=== PATIENT | male | born 1970 | race Caucasian/White ===

== ENCOUNTER 2017-05-09 01:09 | Emergency (ER) | payer OTHER ==
[~2017-05-09] VITALS: Ht 170.2 cm; Wt 88.7 kg
[~2017-05-09 01:09] MED LIST: ABILIFY2 MG PO; ASMANEX TW200 MICROG IH; BENTYL20 MG PO; CLINDAMYCIN HCL75 MG PO; FLEXERIL10 MG PO; GLUCOPHAGE500 MG PO; HUMULIN R100 UNITS/ SC; HUMULIN R500 UNITS/ SC; JANUVIA25 MG PO; LEXAPRO10 MG PO; LOPRESSOR50 MG PO; LYRICA PO; LYRICA150 MG; LYRICA75 MG PO; METFORMIN HCL500 MG PO; METOPROLOL PO; NEURONTIN300 MG PO; NORTRIPTYLINE H10 MG PO; NOVOLOG PE100 UNITS/ SC; OMNICEF300 M1; PROTONIX40 MG PO; PROVENTIL17 GM IH; REQUIP0.25 MG PO; SINGULAIR10 MG PO; TYLENOL REGULA325 MG PO; ULTRAM50 MG PO; XOPENEX HF200 INHALA IH; ZOLOFT100 MG PO
[2017-05-09 01:31] LABS: POINT-OF-CARE METER ID UU13113778
[2017-05-09 02:11] LABS: HEMATOCRIT 45.1 % (38.0-50.0); MCH 29.5 PG (29.0-34.0); MCHC 36.1 G/DL (30.0-36.0); MCV 81.7 FL (86-99); MEAN PLAT.VOLUME 10.2 uM^3 (9.0-12.4); PLATELET COUNT 226 K/uL (156-360); RBC DIS.WIDTH-CV 11.9 % (11.8-14.6); RBC DIS.WIDTH-SD 34.9 % (39-53); RED BLOOD COUNT 5.52 M/uL (4.00-5.50); WHITE BLOOD COUNT 7.5 K/uL (4.1-10.2)
[2017-05-09 02:22] LABS: CHLORIDE 103 mEq/L (99-109); POTASSIUM 3.9 mEq/L (3.7-5.4); SODIUM 137 mEq/L (136-147)
[2017-05-09 02:24] LABS: GLUCOSE 330 mg/dL (70-99)
[2017-05-09 02:25] LABS: ANION GAP 10 MEQ/L (2-14)
[2017-05-09 02:28] LABS: GFR ESTIMATE (CALCULATED) > 59 mL/min/; UREA NITROGEN (BUN) 18 mg/dL (9-23)
[2017-05-09 03:21] VITALS: BP 138/88
== END 2017-05-09 03:22 | disposition home or self-care (01) ==
LOC: EME 01:09
PROVIDERS: Emergency Medicine
DX: G62.9 Polyneuropathy, unspecified (principal); E11.65 Type 2 diabetes mellitus with hyperglycemia; Z79.4 Long term (current) use of insulin; R06.02 Shortness of breath; I10 Essential (primary) hypertension
CPT/HCPCS: 80048; 82948; 85027

== ENCOUNTER 2018-01-29 22:07 | Emergency (ER) | payer OTHER ==
[~2018-01-29] VITALS: Ht 170.2 cm; Wt 88.1 kg
[2018-01-29 22:51] LABS: HEMATOCRIT 43.1 % (38.0-50.0); HEMOGLOBIN 16.1 G/DL (12.5-16.6); MCH 30.4 PG (29.0-34.0); MCHC 37.4 G/DL (30.0-36.0); MCV 81.3 FL (86-99); PLATELET COUNT 229 K/uL (156-360); RBC DIS.WIDTH-CV 12.3 % (11.8-14.6); RBC DIS.WIDTH-SD 36.3 % (39-53); WHITE BLOOD COUNT 7.7 K/uL (4.1-10.2)
[2018-01-29 22:59] LABS: CHLORIDE 102 mEq/L (99-109); POTASSIUM 3.7 mEq/L (3.7-5.4); SODIUM 135 mEq/L (136-147)
[2018-01-29 23:00] LABS: GLUCOSE 353 mg/dL (70-99)
[2018-01-29 23:04] LABS: GFR ESTIMATE (CALCULATED) > 59 mL/min/ (58.99-99999)
[2018-01-29 23:05] LABS: UREA NITROGEN (BUN) 13 mg/dL (9-23)
[2018-01-29 23:12] LABS: TROP-I INTERPRETATION NEGATIVE; TROPONIN-I < 0.01 ng/mL (0.0-0.30)
[2018-01-30 01:47] LABS: TROP-I INTERPRETATION NEGATIVE; TROPONIN-I < 0.01 ng/mL (0.0-0.30)
[2018-01-30 02:19] VITALS: BP 124/75
== END 2018-01-30 02:20 | disposition home or self-care (01) ==
LOC: EME 22:07
PROVIDERS: Emergency Medicine
DX: R07.89 Other chest pain (principal); K21.9 Gastro-esophageal reflux disease without esophagitis; E11.9 Type 2 diabetes mellitus without complications; I10 Essential (primary) hypertension; F41.9 Anxiety disorder, unspecified; F32.9 Major depressive disorder, single episode, unspecified; Z82.49 Family history of ischemic heart disease and other diseases of the circulatory system; Z85.6 Personal history of leukemia; Z88.0 Allergy status to penicillin
CPT/HCPCS: 71046; 80048; 84484; 85027; 93005; 99281; 99285

== ENCOUNTER 2018-03-27 00:58 | Emergency (ER) | payer OTHER ==
[~2018-03-27] VITALS: Ht 170.2 cm; Wt 90.8 kg
[2018-03-27 01:30] LABS: APPEARANCE CLEAR ((CLEAR)); BILIRUBIN NEGATIVE; BLOOD NEGATIVE; COLOR STRAW ((YELLOW)); GLUCOSE (STRIP) >=500; KETONES 5; LEUKOCYTES NEGATIVE; NITRITE NEGATIVE; PROTEIN (STRIP) NEGATIVE; SPECIFIC GRAVITY 1.033 (1.000-1.030); UCUL ADDED? NO; UROBILINOGEN 0.2 MG/DL (0.2-1.0)
[2018-03-27 02:06] LABS: HEMATOCRIT 43.9 % (38.0-50.0); HEMOGLOBIN 16.1 G/DL (12.5-16.6); MCH 30.5 PG (29.0-34.0); MCHC 36.7 G/DL (30.0-36.0); MCV 83.1 FL (86-99); PLATELET COUNT 267 K/uL (156-360); RBC DIS.WIDTH-CV 12.4 % (11.8-14.6); RBC DIS.WIDTH-SD 37.2 % (39-53); RED BLOOD COUNT 5.28 M/uL (4.00-5.50)
[2018-03-27 02:21] LABS: CHLORIDE 99 mEq/L (99-109); POTASSIUM 4.2 mEq/L (3.7-5.4); SODIUM 133 mEq/L (136-147)
[2018-03-27 02:26] LABS: CREATININE 1.2 mg/dL (0.6-1.3); GFR ESTIMATE (CALCULATED) > 59 mL/min/ (58.99-99999)
[2018-03-27 02:27] LABS: UREA NITROGEN (BUN) 19 mg/dL (9-23)
[2018-03-27 02:35] LABS: GLUCOSE 587 mg/dL (70-99)
[2018-03-27 05:28] VITALS: BP 123/80
== END 2018-03-27 05:29 | disposition home or self-care (01) ==
LOC: EME 00:58
PROVIDERS: Emergency Medicine
DX: G43.909 Migraine, unspecified, not intractable, without status migrainosus (principal); E11.65 Type 2 diabetes mellitus with hyperglycemia; I10 Essential (primary) hypertension; F32.9 Major depressive disorder, single episode, unspecified; F41.9 Anxiety disorder, unspecified; K21.9 Gastro-esophageal reflux disease without esophagitis; Z88.0 Allergy status to penicillin
CPT/HCPCS: 80048; 81003; 82948; 85027; J1200; J1885; J2765; J7030